=== PATIENT | female | born 1990 | race Caucasian/White ===

== ENCOUNTER 2023-09-12 10:17 | Inpatient (IN) | payer MEDICAID, OTHER ==
[2023-09-11 13:44] LABS: Hemoglobin 10.6 g/dL (12.0-15.5); Platelet Count 195 10x3/uL (150-450)
[2023-09-11 14:12] LABS: HBsAg Index 0.25 S/CO (0-0.99); Hep B Surf Ag Non-Reactive S/CO (NonReactive); Syphilis Antibody Nonreactive (Nonreactive); Syphilis Antibody Index 0.11 S/CO (<1.00 Non-Reactive)
[~2023-09-12 10:17] MED LIST: Bicitra 30 ML UDCUP PO PRN; Carboprost 250 MCG/ML AMP IM PRN; Diphenoxylate HCl/Atropine Tablet PO PRN; Famotidine/PF 20 mg/2ml Vial SLOW IVP PRN; Ondansetron PF 4 MG/2 ML Vial IVP PRN; Oxytocin 30 units/NS 500 ML 500 ML IV SCH; Promethazine HCl 25 MG/ML VIAL IM PRN; hydrALAZINE 20 MG/ML VIAL SLOW IVP PRN
[2023-09-12 11:16] VITALS: BMI 46.6
[2023-09-12] MEDS: CEFAZOLIN 3 GM, Admixture Fee 1 EACH in Sodium Chloride 0.9% 100 ML IVPB SCH (11:16)
[2023-09-12] MEDS: Lactated Ringer's 1,000 ML IV SCH (11:17)
[2023-09-12] MEDS ORDERED: diphenhydrAMINE 25 MG CAP PO PRN ×2 (13:42→17:02)
[2023-09-12] MEDS ORDERED: Promethazine HCl 25 MG/ML VIAL IM PRN ×2 (13:42→17:02)
[2023-09-12] MEDS ORDERED: Naloxone HCl 0.4 mg/ml Vial IV PRN (13:42)
[2023-09-12] MEDS ORDERED: fentaNYL 50 mcg/mL 1 mL Vial SLOW IVP PRN (13:42)
[2023-09-12] MEDS ORDERED: diphenhydrAMINE 50 MG/ML VIAL IVP PRN (13:42)
[2023-09-12] MEDS ORDERED: Meperidine HCl/PF 25 MG (1 mL) VIAL SLOW IVP PRN (13:42)
[2023-09-12] MEDS ORDERED: FENTANYL 500 MCG/10 ML VIAL 2,000 MCG in Sodium Chloride 0.9% 60 ML IV PRN (13:42)
[2023-09-12] MEDS ORDERED: diphenhydrAMINE 50 MG/ML VIAL IM PRN (13:42)
[2023-09-12] MEDS ORDERED: Ondansetron PF 4 MG/2 ML Vial IVP PRN ×3 (13:42→17:02)
[2023-09-12] MEDS ORDERED: Communication Order-Pharmacy FS PRN (13:45)
[2023-09-12] MEDS ORDERED: Ketorolac Tromethamine 30 MG (1 mL) VIAL IVP SCH (13:45)
[2023-09-12] MEDS: Misoprostol 200 MCG TAB PR PRN (14:17)
[2023-09-12] MEDS: Methylergonovine 0.2 MG/ML VIAL IM PRN (14:17)
[2023-09-12] MEDS: FENTANYL 500 MCG/10 ML VIAL 1,000 MCG in Sodium Chloride 0.9% 30 ML IV PRN (14:42)
[2023-09-12] MEDS ORDERED: Lanolin Ointment 7 GM TUBE TOP PRN (17:02)
[2023-09-12] MEDS ORDERED: hydrALAZINE 20 MG/ML VIAL SLOW IVP PRN (17:02)
[2023-09-12] MEDS ORDERED: Bisacodyl 10 MG SUPP PR PRN (17:02)
[2023-09-12] MEDS ORDERED: Acetaminophen 325 MG TAB PO PRN (17:02)
[2023-09-12] MEDS: fentaNYL 50 mcg/mL 1 mL Vial ONE ×2 (17:11→17:18)
[2023-09-12] MEDS: Ondansetron PF 4 MG/2 ML Vial ONE (17:12)
[2023-09-12] MEDS: Morphine PF 10 MG/10 ML VIAL ONE (17:12)
[2023-09-12] MEDS: Oxytocin 10 UNITS/ML VIAL ONE ×3 (17:12→17:17)
[2023-09-12] MEDS: Phenylephrine 40 MG/NS 250 ML 250 ML ONE (17:13)
[2023-09-12] MEDS: ePHEDrine Sulfate 50 MG/10 ML VIAL ONE (17:13)
[2023-09-12] MEDS: Hepatitis B Vaccine 10 MCG/0.5 ML SYR ONE (17:14)
[2023-09-12] MEDS: Tranexamic Acid 1,000 MG/10 ML VIAL ONE (17:14)
[2023-09-12] MEDS: Erythromycin Base 0.5% Oint 1 GM TUBE ONE (17:14)
[2023-09-12] MEDS: Phytonadione Neonatal 1 MG/0.5 ML AMP ONE (17:14)
[2023-09-12] MEDS: Famotidine/PF 20 mg/2ml Vial ONE (17:15)
[2023-09-12] MEDS: PROPOFOL 20 ML ONE (17:15)
[2023-09-12] MEDS: KETAMINE 100 MG/ML (5ML VIAL) ONE (17:15)
[2023-09-12] MEDS: Rocuronium Bromide 10 MG/ML (10ML VIAL) ONE (17:16)
[2023-09-12] MEDS: Midazolam HCl 2 mg/2 ml Vial ONE (17:16)
[2023-09-12] MEDS: Fentanyl 250 MCG/5 ML VIAL ONE (17:16)
[2023-09-12] MEDS: SUCCINYLCHOLINE/SOD CL,ISO/PF 200 MG/10 ML SYRINGE FS ONE (17:16)
[2023-09-12] MEDS: SUGAMMADEX SODIUM 200 MG/2 ML VIAL ONE (17:17)
[2023-09-12] MEDS: Ketorolac Tromethamine 30 MG (1 mL) VIAL IVP PRN (20:17)
[2023-09-12] MEDS: Docusate 100 MG CAP PO SCH (20:18)
[2023-09-13 04:54] LABS: Hematocrit 26.7 % (34.9-44.5); Hemoglobin 8.9 g/dL (12.0-15.5); Mean Corpuscular HGB CONC 33.3 g/dL (32.0-36.0); Mean Corpuscular Hemoglobin 28.8 pg (27.0-33.0); Mean Corpuscular Volume 86.4 fL (81.6-98.3); Platelet Count 180 10x3/uL (150-450); RBC Distribution Width 16.6 % (11.5-14.5); Red Blood Cell (RBC) Count 3.09 10x6/uL (3.90-5.03); White Blood Cell (WBC) Count 8.6 10x3/uL (3.5-10.5)
[2023-09-13] MEDS: Ferrous Sulfate 325 MG TAB PO SCH (07:14)
[2023-09-13] MEDS: Boostrix 0.5 ML (Tdap) VIAL (>/=7 yrs of age) IM ONE (07:22)
[2023-09-13] MEDS: Ibuprofen 800 MG TAB PO SCH ×2 (07:25→13:36)
[2023-09-13] MEDS: Prenatal Vitamin 1 TAB PO SCH (08:07)
[2023-09-13] MEDS: HYDROcodone/Acetaminophen 5/325 mg Tablet PO PRN ×2 (11:11)
[2023-09-13] MEDS: Simethicone Chewable 80 MG TAB PO PRN (19:44)
[2023-09-14 08:04] VITALS: BP 96/50; TEMP 98.8
== END 2023-09-14 18:30 | disposition home or self-care (01) | DRG 784 ==
LOC: CSHLD 10:17 → CSHPP 16:00
PROVIDERS: ADMIT Student in an Organized Health Care Education/Training Program; ATTEND Student in an Organized Health Care Education/Training Program
PROC: 10D00Z1 Extraction of Products of Conception, Low, Open Approach (ICD-10-PCS; principal; 2023-09-12)
PROC: 0UB70ZZ Excision of Bilateral Fallopian Tubes, Open Approach (ICD-10-PCS; 2023-09-12)
PROC: 10D00Z1 Extraction of Products of Conception, Low, Open Approach (ICD-10-PCS; 2023-09-12)
DX: O34.211 Maternal care for low transverse scar from previous cesarean delivery (principal); D62 Acute posthemorrhagic anemia; Z3A.38 38 weeks gestation of pregnancy; Z30.2 Encounter for sterilization; Z37.0 Single live birth; O24.425 Gestational diabetes mellitus in childbirth, controlled by oral hypoglycemic drugs; O99.214 Obesity complicating childbirth; O99.892 Other specified diseases and conditions complicating childbirth; N87.9 Dysplasia of cervix uteri, unspecified
CPT/HCPCS: 36416; 51702; 85014; 85018; 85027; 85049; 86780; 86850; 86900; 86901; 87340; 88302; J1885; J2210; J2250; J2274; J2405; J2590; J2704; J3010; J3490; J7120; S0028